=== PATIENT | female | born 1945 | race Caucasian/White ===

== ENCOUNTER 2017-04-04 15:01 | Inpatient (IN) | payer MEDICARE ==
[2017-04-04] MEDS ORDERED: Ipratropium 0.5MG/2.5ML NEB* 0.5 MG/2.5 ML NEB.SOLN INH ONE (15:32)
[2017-04-04] MEDS ORDERED: Levalbuterol 1.25MG/0.5ML NEB INH ONE ×2 (15:32→17:03)
[2017-04-04] MEDS ORDERED: NS 0.9% 1000 ML*IV.FLUID IV ONE (15:34)
[2017-04-04] MEDS ORDERED: Piperacillin/Tazobac ADVAN(*) 3.375 GM in NS 0.9% 100 ML* 100 ML IVPB ONE ×2 (15:40→15:52)
[2017-04-04] MEDS ORDERED: Vancomycin(*) 1,000 MG in NS 0.9% 250 ML* 250 ML IVPB ONE ×2 (15:40→19:30)
--- NOTE | 2017-04-04 15:46 | ED ---
Shortness of Breath - HPI Summary HPI Summary: Pt here w/ SOB and weakness. She developed URI sx Friday - rhinorrhea, cough, scratchy throat. [place] weak starting this day so reduced activity and hasn't been eating/drinking much. Denies fever, chills, N/V/D, ab pain, sores or dysuria. Reports she's hungry now. Has a lower central sternal CP she's had over the past 2 years - discussed w/ PCP who told her this is from COPD - this dx was made in the past 2 years only - h/o smoking but not recently. She takes fluticasone inhaled daily. Also has HTN for which she takes 2 meds. H/o breast CA - s/p mastectomy. No known h/o clotting, DVT. No h/o cardiac dz/arrhythmia - History of Current Complaint Chief Complaint: EDShortnessOfBreath Time Seen by Provider: 04/04/17 15:32 Hx Obtained From: Patient, Family/Yeast Culture Developer - Daughters - Allergy/Home Medications Allergies/Adverse Reactions: Allergies Allergy/AdvReac Type Severity Reaction Status Date / Time No Known Allergies Allergy Verified 04/04/17 15:11 Home Medications: Home Medications Fluticasone-Salmeterol 250-50* [Advair Diskus 250-50*] 1 puff INH BID PRN [History Confirmed 04/04/17] Meclizine TAB* [Antivert 12.5 TAB*] 25 mg PO DAILY 04/04/17 [History Confirmed 04/04/17] Spironolactone TAB* [Aldactone TAB*] 25 mg PO DAILY 04/04/17 [History Confirmed 04/04/17] PMH/Surg Hx/FS Hx/Imm Hx Previously Healthy: Yes Endocrine/Hematology History: Denies: Hx Anticoagulant Therapy, Hx Blood Disorders Cardiovascular History: Reports: Hx Hypertension - on meds Respiratory History: Reports: Hx Chronic Obstructive Pulmonary Disease (COPD) - fluticason inhaled daily Musculoskeletal History: Denies: Hx Osteoporosis Sensory History: Reports: Hx Contacts or Glasses Opthamlomology History: Reports: Hx Contacts or Glasses - Cancer History Hx Chemotherapy: Yes Hx Radiation Therapy: No - Surgical History Surgery Procedure, Year, and Place: left knee surgery, left ankle Infectious Disease History: No Infectious Disease History: Denies: Traveled Outside the [place] in Last 30 Days - Family History Known Family History: Positive: None - Social History Occupation: Retired Lives: Alone Alcohol Use: None Hx Substance Use: No Substance Use Type: Reports: None Hx Tobacco Use: Yes - not currently Smoking Status (MU): Former Smoker Review of Systems Positive: Fatigue. Negative: Fever, Chills Eyes: Negative Positive: Nasal Discharge. Negative: Epistaxis, Dental Pain, Sore Throat, Ear Ache Positive: Chest Pain - as in HPI Positive: Shortness Of Breath, Cough Gastrointestinal: Negative Positive: no symptoms reported Musculoskeletal: Negative Skin: Negative Neurological: Negative Psychological: Normal All Other Systems Reviewed And Are Negative: Yes Physical Exam Triage Information Reviewed: Yes Vital Signs On Initial Exam: Initial Vitals Temp Pulse Resp BP Pulse Ox 98 F 157 20 86/57 88 04/04/17 15:10 04/04/17 15:10 04/04/17 15:10 04/04/17 15:10 04/04/17 15:10 Vital Signs Reviewed: Yes Appearance: Positive: No Pain Distress, Well-Nourished, Ill-Appearing - pt is having increased respirations at rest, worse w/ exertion - she is able to speak and appears coherent; generalized weakness - needs assistance with standing from sitting and transfer to bed Skin: Positive: Warm, Dry - no rash, no lesions Head/Face: Positive: Normal Head/Face Inspection Eyes: Positive: Normal, EOMI, SERGEY, Conjunctiva Clear - wearing glasses ENT: Positive: Normal ENT inspection, Hearing grossly normal, Pharynx normal, TMs normal. Negative: Nasal congestion, Nasal drainage Dental: Positive: Other - edentulous Neck: Positive: Supple, Nontender Respiratory/Lung Sounds: Positive: Decreased Breath Sounds, Rales - Lt lower lobe. Negative: Stridor, Wheezes Cardiovascular: Positive: Pulses are Symmetrical in both Upper and Lower Extremities, Tachycardia, Leg Edema Left - +1 (-) Pablo's, Leg Edema Right - +1 (-) Pablo's, S1, S2. Negative: Murmur Abdomen Description: Positive: Nontender, Soft Bowel Sounds: Positive: Present Musculoskeletal: Positive: Normal, Strength/ROM Intact Neurological: Positive: Normal, Sensory/Motor Intact, Alert, Oriented to Person Place, Time, CN Intact II-III, Facial Symmetry, Speech Normal Psychiatric: Positive: Normal - calm, cooperative Diagnostics - Vital Signs Vital Signs Temp Pulse Resp BP Pulse Ox 04/04/17 15:10 98 F 157 20 86/57 88 - Laboratory Result Diagrams: 04/04/17 16:45 04/04/17 16:45 Diagnostic Studies Comment: CXR: pneumonia, COPD Lab Statement: Any lab studies that have been ordered have been reviewed, and results considered in the medical decision making process. Re-Evaluation - Re-Evaluation First Eval Change: Improved - breathing improved some s/p xoponex/ipratroprium bromide neb Course/Dx - Course Course Of Treatment: Pt presents to ED w/ SOB and generalized weakness. Reports this started earlier in the week with URI sx. She required assistance getting out of wheelchair and into bed - exacerbates SOB. She is able to speak but has tachypnea. Vital signs are suggestive of sepsis although she does not have a fever. She has h/o COPD for which she treats with fluticasone inhaled daily. She also has HTN and takes 2 meds for this as well - has been taking w/o difficulty. Her lungs sounds are distant but after duoneb, rales are auscultated over Lt middle/lower lobe. She reports some improvement of breathing after this - "it helped me move some phelgm". Her ECG reveals a. fib - pt and family deny a h/o a. fib or any heart issues. She had a w/u for chest pain 2 years ago which is how her PCP found and dx'd her COPD. This was normal then (including cardiac catheter). She was also placed on 2L O2 via NC upon entrance to room - some improvement (low 90's) - better w/ relaxation and deep breathes (mid 90's) - heart rate reduced to 110's w/ breathing and relaxation as well. Unfortunately, pulse ox dropped again while in room so NC O2 was increased to 4L. This improved her sat again. ABG returned with resp alkalosis. Other labs reveal WBC 14.7; HGB 10.2; HCT 32; MCV 79; MCH 25; RDW 18;PLATELET 488; MPV7; LYMPH %11.8; aBS NEUT 12.2; K+ 3.3; ANION GAP 12; BUN 39; GLUCOSE 123 ; LACTIC ACID 3.3; AST 9; CRP 299.98; OTHER LABS PENDING. Discussed w/ Dr. Gomez early in the case - initially source was unknown although pneumonia suspected - after neb tx, LLL reveals rales and so tx was aimed at CAP (no recent hospitalization). Discussed w/ Dr. Syed/Jacobo Valdez PRINT BUYER - will admit. Critical care time: 60 minutes - Diagnoses Provider Diagnoses: Sepsis due to pneumonia Discharge - Discharge Plan Condition: Guarded Disposition: ADMITTED TO [facility] Referrals: Jack Corrales MD [Primary Care Provider] -
[2017-04-04] MEDS ORDERED: Levofloxacin 750 MG IVPREMIX(* 750 MG/150 ML BAG IVPB ONE (15:52)
[2017-04-04 16:02] LABS: FIO2 2
[2017-04-04 16:09] LABS: PCO2 Arterial 26 mmHg (35-45)
--- NOTE | 2017-04-04 16:30 | RAD ---
INDICATION: Shortness of breath. COMPARISON: Comparison is made with a prior chest x-ray study from December 01, 2015. TECHNIQUE: Dual-energy PA and lateral views of the chest were obtained. FINDINGS: The heart is within normal limits in size. Mediastinal and hilar contours appear within normal limits. The lungs are hyperinflated. There is diffuse prominence of the interstitial markings with a more focal infiltrate present in the right mid and lower lung field. There is pleural thickening present laterally toward the right lung base versus a loculated pleural effusion. IMPRESSION: 1. FINDINGS MOST CONSISTENT WITH PNEUMONIA LESS LIKELY CONGESTIVE HEART FAILURE. 2. COPD.
[2017-04-04] MEDS ORDERED: methylPREDNISolone SOD 40 MG* 1 ML VIAL IV ONE (17:02)
[2017-04-04 17:03] LABS: Hematocrit 32 % (35-47); Hemoglobin 10.2 g/dl (12.0-16.0); Mean Corpuscular HGB Conc 32 g/dl (31-36); Mean Corpuscular Hemoglobin 25 pg (27-31); Mean Corpuscular Volume 79 fL (80-97); Mean Platelet Volume 7 um3 (7.4-10.4); Red Blood Count 4.04 10^6/ul (4.0-5.4); Red Cell Distribution Width 18 % (10.5-15); White Blood Count 14.7 10^3/ul (3.5-10.8)
[2017-04-04 17:16] LABS: BUN/Creatinine Ratio 39.8 (8-20); C Reactive Protein 299.98 mg/L (< 5.00); Calcium 9.3 mg/dL (8.6-10.3); EGFR African American 72.2 (>60); EGFR Non-African American 56.1 (>60); Potassium 3.3 mmol/L (3.5-5.0); Total Bilirubin 0.8 mg/dL (0.2-1.0); Total Protein 7.6 g/dL (6.4-8.9)
[2017-04-04 17:18] LABS: Troponin I 0.03 ng/mL (<0.04)
[2017-04-04] MEDS ORDERED: NS 0.9% 1000 ML* 2,000 ML IV ONE (17:50)
[2017-04-04] MEDS ORDERED: Albuterol 2.5 MG/3 ML NEB.SOL* (0.083%) INH PRN (17:50)
[2017-04-04] MEDS ORDERED: Vancomycin(*) 1,000 MG in NS 0.9% 250 ML* 250 ML IVPB SCH (17:51)
[2017-04-04] MEDS ORDERED: methylPREDNISolone SOD 40 MG* 1 ML VIAL ONE (18:10)
[2017-04-04 18:22] LABS: Albumin 3.4 g/dL (3.2-5.2); Globulin 4.2 g/dL (2-4)
[2017-04-04] MEDS ORDERED: Vancomycin per Pharmacy* NOTE FOLLOW UP PRN (18:29)
[2017-04-04 18:36] LABS: Magnesium 2.1 mg/dL (1.9-2.7)
[2017-04-04 18:43] LABS: TSH (Thyroid Stimulating Horm) 3.44 mcIU/mL (0.34-5.60)
[2017-04-04] MEDS: Albuterol/Ipratropium NEB.SOL* Albuterol 2.5 MG/Ipratropium 0.5 MG 3 ML INH SCH ×2 (18:47→23:10)
[2017-04-04] MEDS: NS 0.9% 1000 ML* 1,000 ML IV SCH (19:49)
[2017-04-04 21:22] LABS: EGFR African American 89.9 (>60); EGFR Non-African American 69.9 (>60)
[2017-04-04 21:39] LABS: Urine Bacteria 3+ (Absent); Urine Bilirubin Negative (Negative); Urine Glucose 1+(50 mg/dL) (Negative); Urine Nitrite Negative (Negative)
[2017-04-04] MEDS: KCL 20 MEQ/100 ML IVPREMIX* 20 MEQ/100 ML BAG IV SCH ×2 (21:46→23:55)
[2017-04-04] MEDS ORDERED: NS 0.9% 50 ML* 50 ML ONE (21:46)
[2017-04-04] MEDS: Azithromycin IV(*) 500 MG in NS 0.9% 250 ML* 250 ML IVPB SCH (21:52)
[2017-04-04] MEDS ORDERED: Ondansetron INJ* 2 MG/ML VIAL IV PRN (22:15)
[2017-04-04] MEDS: Budesonide NEB* 0.5 MG/2 ML NEB.SOLN INH SCH (23:10)
[2017-04-04] MEDS: cefTRIAXone VIAL(*) 1,000 MG in NS 0.9% 50 ML* 50 ML IVPB SCH (23:35)
[2017-04-04] MEDS: Heparin VIAL(*) 5000 UNITS/ML VIAL (FIVE THOUSAND) SUBCUT SCH (23:55)
--- NOTE | 2017-04-05 01:44 | HP ---
CC: Dr. Corrales; Dr. Borrero * HISTORY AND PHYSICAL: DATE OF ADMISSION: 04/04/17 PRIMARY CARE PROVIDER: Dr. Corrales. ATTENDING PHYSICIAN WHILE IN THE HOSPITAL: Matthieu Syed MD * (report dictated by Jacobo Valdez NP). CONSULTING SAMPLE SHOE INSPECTOR AND REWORKER: Dr. Borrero. CHIEF COMPLAINT: 1. Cough. 2. Shortness of breath. HISTORY OF PRESENT ILLNESS: Ms. Neil is a 71-year-old female patient, who carries a history of breast cancer; hypertension; TYRONE, noncompliant with CPAP; COPD; and history of osteoporosis. She comes in today stating that since Friday she has had progressive worsening shortness of breath, she has had cough. It has been nonproductive cough. She has not had any recent sick contacts. She says that this was not getting any better. She texted her daughter today and asked her for help. The daughter came to evaluate her and noted that she was obviously having a hard time breathing, very short of breath , taking rapid shallow breath and she brought her into the emergency room immediately. The patient says that she turned out she has not had any fevers. She denies having any chills. Denies having any abdominal pain. There has not been any nausea or vomiting. She does admit to having chest pain when she does take a deep breath. She came into the ED. It was noted that she appeared to be in new onset AFib. In addition to this, appeared to have a significant pneumonia, appeared to be septic and we were asked to evaluate for admission. PAST MEDICAL HISTORY: Significant for: 1. Breast cancer. 2. Hypertension. 3. COPD. 4. TYRONE. 5. Osteoporosis. PAST SURGICAL HISTORY: 1. The patient has had a mastectomy. 2. She has had a left upper extremity ORIF. 3. She has had a left lower extremity ORIF. 4. She has had a heart catheterization with no intervention. HOME MEDICATIONS: Include: 1. Advair 1 puff inhaled b.i.d. 2. Lisinopril 20 mg daily. 3. Meclizine 25 mg daily. 4. Spironolactone 25 mg daily. ALLERGIES TO MEDICATION: Include no known drug allergies. FAMILY HISTORY: Mother had a history of breast cancer. Father had a history of COPD. SOCIAL HISTORY: The patient is a former smoker. She does not smoke now. She quit 17 years ago. She does not drink alcohol. Surrogate decision maker is her daughter. REVIEW OF SYSTEMS: There is no documented fever. Denied having any significant weight change. There was no double vision. No ear discharge. There was no rhinorrhea, no sore throat, no thyroid enlargement. There was chest pain per my HPI. There is dyspnea on exertion. There is no orthopnea. No nocturnal dyspnea. There was no abdominal pain. There was no nausea, no vomiting, no dysuria. There was no frequency. There was no seizure, no loss of consciousness, no pruritus and no skin ulcerations. Review of 14 systems completed, all others negative. PHYSICAL EXAMINATION GENERAL: At this time, Ms. Neil is a 71-year-old female patient. She does appear to be in [id number] amount of respiratory distress. She appears to be well nourished, well developed. VITAL SIGNS: Initially blood pressure 86/57; last blood pressure was 103/70 with pulse initially was 157, it is now 120; respirations were noted to be 20, but when I encountered her, she is noted to be right on the 30s. Her O2 saturation is 97% and her temperature was 98. Her O2 sat was on 4 L. HEENT: Atraumatic, normocephalic. Eyes: EOMs are intact. Sclerae anicteric and not pale. Throat: Oral mucosa appears to be dry. No oropharyngeal erythema. NECK: Supple. LUNGS: She was noted to have rhonchi and crackles on the right lung with diaphragmatic expansion. The rhonchi and crackles are noted in the right middle and right lower lobe, equal diaphragmatic expansion. HEART: Sounds S1, S2. Irregularly irregular rate. No murmurs, rubs, or gallops. ABDOMEN: Soft, flat, nontender. Bowel sounds are present. EXTREMITIES: Pulses were 2+ throughout, moving all 4 extremities with 5/5 strength. NEUROLOGIC: The patient is awake. She is alert. She is oriented x3. Tongue midline. National Sales Associate were equal. She had no gross obvious focal deficits. SKIN: Grossly intact. DIAGNOSTIC STUDIES/LAB DATA: WBC of 14.7, RBC of 4.04, hemoglobin 10.2, hematocrit 32, platelet count of 488. The INR was 4.26, PTT at 25. Blood gas showed a pH of 7.51, pCO2 of 26, pO2 of 112. Sodium was 139, potassium was 3.4 , chloride was 104, BUN of 39, creatinine of 0.98, glucose of 123, lactic 3.3, calcium 9.3. Total bili 0.8, AST 9, ALT 7, alk phos 52. Troponin 0.03. CRP was 299. Total protein was 7.6. The patient did have a chest x-ray obtained today. On my review, she appeared to have significant right middle lobe pneumonia, right lower lobe. Radiology read it as findings most consistent with pneumonia, less likely congestive heart failure, COPD. EKG obtained today shows atrial fibrillation rate of 132. No ST elevation or T-wave inversions were noted. Reviewed with the previous EKG, the AFib is now new. Old medical records reviewed. ASSESSMENT AND PLAN: Ms. Neil is a 71-year-old female patient coming into the ER today with progressive worsening shortness of breath and found to have severe sepsis. She will be admitted under inpatient status for: 1. Severe sepsis secondary to pneumonia with hypoxic respiratory failure and acute renal failure. Plan at this point is to go ahead and give her 3 L of fluid IV wide open. Blood cultures were ordered in the ER and I have ordered them as well. They are to be collected. I did add on vancomycin, ceftriaxone, and azithromycin. In addition to this, I ordered steroids because I do think this is flaring her COPD as well and put her on neb standing. I am concerned though because of her work of breathing at 30 right now, I did ask for Vapotherm on the patient on max settings to see if we can get ahead of her with her work of breathing. If she is not improving in an hour or 2 hours on the Vapotherm, then I will have low threshold to proceed to intubation. I did discuss this with my attending doctor, Dr. Syed, and also discussed it with Dr. Borrero, the consulting substance abuse specialist and he was in agreement with this. We will again hydrate her. We will again hydrate her. We will ferro culture. We will check flu, legionella, strep pneumo antigen and again continue with aggressive pulmonary toileting. 2. Acute renal failure. It is probably related to dehydration and possibly acute tubular necrosis. We will get a FENa. We will hydrate her. We will repeat labs in the morning. 3. Lactic acidosis. Again, probably secondary to the sepsis. We will repeat this and follow serial lactate. 4. Breast cancer. Follow with primary. 5. Chronic obstructive pulmonary disease. She does appear to have an exacerbation at this point. We will go ahead and put her on steroids standing in addition to nebs along with inhaled Pulmicort. 6. Hypertension in the setting of acute illness. We are going to hold her antihypertensives. 7. Atrial fibrillation. It is probably being driven by the sepsis. At this point, I am going to go ahead and replace her potassium. I am going to add on a mag and a TSH, replace these if needed and treat the TSH if needed. The plan will be to get a potassium; therefore, I will hold off on anticoagulation as I think the AFib is obviously related to the sepsis, and hopefully by treating the sepsis, she will be rate controlled, and after the immediate illness, we could address anticoagulation and possible cardiology consult. I did order an echo as well for the AFib. 8. Osteoporosis. Follow up with primary. 9. DVT prophylaxis: We place her on heparin subcu. 10. Code status: Full code. 11. Fluid, electrolyte, nutrition: She is NPO for the time being. TIME SPENT: On the admission, which is critical care time, was 60 minutes, greater than half the time was spent [id number] with the patient obtaining my history and physical, other half the time was spent going over the plan of care with the patient, implementing the plan of care. I discussed the plan of care with my attending, Dr. Syed. JACOBO VALDEZ, DENISE [id number]/[facility] #: [id number] LATOSHA
[2017-04-05] MEDS: Albuterol/Ipratropium NEB.SOL* Albuterol 2.5 MG/Ipratropium 0.5 MG 3 ML INH SCH ×6 (04:28→23:54)
[2017-04-05] MEDS: NS 0.9% 1000 ML* 1,000 ML IV SCH ×2 (05:46→16:13)
[2017-04-05] MEDS: Heparin VIAL(*) 5000 UNITS/ML VIAL (FIVE THOUSAND) SUBCUT SCH ×3 (06:24→21:49)
[2017-04-05] MEDS ORDERED: Vancomycin(*) 750 MG in NS 0.9% 250 ML* 250 ML IVPB SCH (08:00)
[2017-04-05] MEDS: Budesonide NEB* 0.5 MG/2 ML NEB.SOLN INH SCH ×2 (08:11→19:32)
--- NOTE | 2017-04-05 10:57 | PN ---
Progress Note - Progress Note Date of Service: 04/05/17 Note: CRITICAL CARE MEDICINE Date: 04/05/17 Time: 950 SUBJECTIVE: Patient seen and examined. daughter at bedside. PHYSICAL EXAM: appears older then age, a little frail. hearing aids. Vital Signs: Reviewed. Neurologic: awake, communicating, holds capacity HEENT: pupils equal. Sclera anicteric. Trachea midline. Cardiovascular: S1 S2 reg Respiratory: diffuse Right sided rales and mild wheeze. left course otherwise clear Abdomen: Soft, obese, nt. no masses Extremities: Warm. Left knee scar. Access: piv LABS: Reviewed. IMAGING: Reviewed. MEDICATIONS: Reviewed. ASSESSMENT: 71 F Acute hypoxic resp failure CAP - likely strept pna Severe sepsis sec to above ?parapneumonic effusion COPD exac Andra, secondary to above- improved Lactic acidosis - resolved PAF sec to sepsis - resolved PLAN: Neurologic: stable. Cardiovascular: Perfusing. vol status ok but can still tolerate gentle hydration today. Respiratory: Tolerating on HFO2 and avoided MV. Still tachypnea and vol loss on Right which may remain dense. Bedside US with nonfree flowing but not large volume pleural fluid. Still question parapneumoninic effusion perhaps. We discussed at her bedside with her and daughter. Can consider thora, but only for diagnostics at this time and then may need to upgrade to surgical potential. However, would prefer to stabilize further and if she can tolerate, obtain CT chest to better define and then go from there. If unable to have CT, sec to HFO2 needs, may still need to attempt thora today. she expressed understanding. Gastrointestinal: clears. Renal/Metabolic: improved. ivf today Infectious Disease: recieving ceftriaxone and azithro for cap, and can narrow further to strept post sens. can dc vanco Hematology: stable. Endocrine: steroids for copd exac component Musculoskeletal: oob as able. Psych/Social: pt and daughter expressed understanding Supportive and preventative care as ordered. Vaccine: up to date SUP: po VTE prophylaxis: heparin Troy catheter given critical illness, monitoring needs for accurate assessment of ANDRA and KDIGO criteria for critically ill patients and to avoid potential harms of urinary retention, skin breakdown/ulcers. Disposition: ICU Code Status: Full Critical Care Time: 45min Richard Borrero DO
[2017-04-05 11:17] LABS: Add Diff/Slide Review? Slide Review Added; Comments Flag Yes; Hematocrit 24 % (35-47); Hemoglobin 7.6 g/dl (12.0-16.0); Mean Corpuscular HGB Conc 32 g/dl (31-36); Mean Corpuscular Hemoglobin 25 pg (27-31); Mean Corpuscular Volume 78 fL (80-97); Mean Platelet Volume 7 um3 (7.4-10.4); Red Blood Count 3.04 10^6/ul (4.0-5.4); Red Cell Distribution Width 18 % (10.5-15); White Blood Count 11.1 10^3/ul (3.5-10.8)
[2017-04-05 11:19] LABS: BUN/Creatinine Ratio 69.5 (8-20); Calcium 8.1 mg/dL (8.6-10.3); EGFR African American 129.6 (>60); EGFR Non-African American 100.8 (>60); Potassium 4.1 mmol/L (3.5-5.0)
[2017-04-05] MEDS: Azithromycin IV(*) 500 MG in NS 0.9% 250 ML* 250 ML IVPB SCH (17:47)
[2017-04-05] MEDS: cefTRIAXone VIAL(*) 1,000 MG in NS 0.9% 50 ML* 50 ML IVPB SCH (19:49)
[2017-04-06] MEDS ORDERED: Acetaminophen TAB* 325 MG PO PRN (03:24)
[2017-04-06 04:34] LABS: Hematocrit 31 % (35-47); Hemoglobin 9.9 g/dl (12.0-16.0); Mean Corpuscular HGB Conc 32 g/dl (31-36); Mean Corpuscular Hemoglobin 25 pg (27-31); Mean Corpuscular Volume 79 fL (80-97); Mean Platelet Volume 7 um3 (7.4-10.4); Red Blood Count 3.95 10^6/ul (4.0-5.4); Red Cell Distribution Width 18 % (10.5-15); White Blood Count 11.6 10^3/ul (3.5-10.8)
[2017-04-06 04:38] LABS: Add Diff/Slide Review? Slide Review Added; Comments Flag Yes
[2017-04-06] MEDS: Albuterol/Ipratropium NEB.SOL* Albuterol 2.5 MG/Ipratropium 0.5 MG 3 ML INH SCH ×6 (04:38→22:45)
[2017-04-06 04:49] LABS: BUN/Creatinine Ratio 57.4 (8-20); Calcium 7.9 mg/dL (8.6-10.3); EGFR African American 124.7 (>60); Magnesium 2.3 mg/dL (1.9-2.7); Phosphorus 2.2 mg/dL (2.5-5.0); Potassium 3.5 mmol/L (3.5-5.0)
[2017-04-06] MEDS: Heparin VIAL(*) 5000 UNITS/ML VIAL (FIVE THOUSAND) SUBCUT SCH ×3 (06:37→21:03)
[2017-04-06] MEDS ORDERED: Vancomycin Trough Check NOTE FOLLOW UP ONE (08:00)
[2017-04-06] MEDS: Budesonide NEB* 0.5 MG/2 ML NEB.SOLN INH SCH ×2 (08:31→19:21)
--- NOTE | 2017-04-06 10:24 | PN ---
Progress Note - Progress Note Date of Service: 04/06/17 Note: CRITICAL CARE MEDICINE Date: 04/06/17 Time: 930 SUBJECTIVE: Patient seen and examined. PHYSICAL EXAM: less distressed again Vital Signs: Reviewed. Neurologic: awake, communicating, holds capacity HEENT: pupils equal. Sclera anicteric. Trachea midline. Cardiovascular: S1 S2 reg Respiratory: few rales on R but less. Abdomen: Soft, obese, nt. no masses Extremities: Warm. Access: piv LABS: Reviewed. IMAGING: Reviewed. MEDICATIONS: Reviewed. ASSESSMENT: 71 F Acute hypoxic resp failure CAP - strept pna Severe sepsis sec to above ?parapneumonic effusion COPD exac Andra, secondary to above- improved Lactic acidosis - resolved PAF sec to sepsis - resolved PLAN: Neurologic: stable. Cardiovascular: Perfusing. vol status ok and not trying to over water but can tolerate po water. echo pending Respiratory: off HFO2 and continued to wean. Still with dec chest excursion and vol loss on Right. Eval with CT today to enusre no large effusion to target foir benefit. Pt afeb and clincally improving so no large need to drain yet but may cause a lingering course. nebs. adjunctives. not on systemic steroids but if wheeze reverts would consider course with her cap. Gastrointestinal: advanced. Renal/Metabolic: improved. [place] Infectious Disease: on ceftriaxone and azithro for strept awaiting sens and then can de-escalate. Hematology: stable. Endocrine: f/u needs Musculoskeletal: oob as able. ambulate. Psych/Social: pt expressed understanding Supportive and preventative care as ordered. Vaccine: up to date SUP: po VTE prophylaxis: heparin Disposition: ICU today likely, and oou later today or tomorrow. Code Status: Full Critical Care Time: 25min Richard Borrero DO
[2017-04-06] MEDS ORDERED: Iohexol 300* (CONTRAST) 10 ML SDV IV ONE (11:18)
--- NOTE | 2017-04-06 12:22 | RAD ---
INDICATION: Sepsis and atrial fibrillation. Concern for parapneumonic effusion. COMPARISON: CTA of the chest dated August 24, 2009. More recent imaging includes chest x-ray dated April 04, 2017 TECHNIQUE: Axial source images of the chest were acquired after the injection of 80 mL Omnipaque 300 intravenous contrast from just above the lung apices to the base of the diaphragm. Coronal and sagittal reconstructed images were acquired. FINDINGS: The heart is normal in size. There is no evidence of pericardial effusion. There is no evidence of aortic aneurysm or dissection. There is coarse calcification at the coronary arteries and arch of the aorta. There is no mediastinal, hilar, or axillary lymphadenopathy. There is consolidation with air bronchograms involving the dependent portion and lower portion of the right lower lobe. There appears to be involvement of the dependent portions of the right middle and upper lobes as well to a lesser extent. There is a small amount of compressive consolidation involving the dependent portion of the left lower lobe. There are small bibasilar pleural effusions. The pleural effusion on the right is slightly smaller than the effusion seen on the [address], but the degree of parenchymal consolidation involving the right lung is greater. Overall there is centrilobular emphysematous changes as well. The osseous structures appear normal. Multilevel degenerative changes of the thoracic spine includes loss of intervertebral disc height. There are no sinister appearing bone lesions. IMPRESSION: 1. There is consolidation with air bronchograms involving a majority of the right lower lobe and the dependent portions of the right middle and right upper lobes. There is a small amount of compressive consolidation involving the dependent-most portion of the left lower lobe. This is in the presence of bilateral pleural effusions, slightly larger on the right than the left. When compared to the CT of the chest dated August 24, 2009 the right sided pleural effusion is slightly smaller but the degree of consolidation is greater. 2. There is coarse atherosclerotic calcification at the origin of the left subclavian artery. Please correlate to left upper extremity arterial insufficiency including relatively decreased blood pressures and signs or symptoms of subclavian steal phenomenon.
[2017-04-06] MEDS ORDERED: Morphine INJ* 2 MG/ML 1 ML SYRINGE (TWO MG - NEW SYRINGE VERSION) ONE (12:24)
[2017-04-06] MEDS: Potassium & Sodium Phos 250MG* = 1 PACKET PO SCH ×2 (12:56→21:03)
[2017-04-06] MEDS ORDERED: Morphine INJ* 2 MG/ML 1 ML SYRINGE (TWO MG - NEW SYRINGE VERSION) IV ONE (13:00)
--- NOTE | 2017-04-06 13:16 | PN ---
Progress Note - Progress Note Date of Service: 04/06/17 Note: CRITICAL CARE MEDICINE PROCEDURE NOTE DATE OF PROCEDURE: SERVICE: Critical Care Medicine LOCATION OF PROCEDURE: ICU PROCEDURE: Thoracentesis PROCEDURALIST: Dr. Borrero Consent obtain: Yes from pt Time out held: Yes INDICATION: Pleural effusion, PROCEDURE: Oxygenation maintained and vitals monitored. Patient in upright seated position Right side and site , posterior, above 8th rib, marked with initials and date. Chlorhexidine prep x 2 at site and full sterile drape, gown, and gloves utilized. Total 5ml 1% lidocaine utilized locally. Small incision via scalpel at skin. Standard sterile technique utilized via ultrasound guidance. Fluid appeared murky on US and not overtly free flowing anywhere. Needle advanced to total 5cm from skin and retraction of venous blood. At first, thought may have hemothorax , but pt denies falling. after about 5mls retracted, fluid consistency did not change. Never withdrew air, but pt then with episode of coughing and then hemoptysis. [place] short of breath with this and coughed up further. Procedure abandoned, as assumption of iatrogenic ptx now. Pt O2 increased for comfort. Placed back in supine at 30 degrees. Explained the dynamics to pt and 2 daughters at bedside. Pt not desaturating but placed on HFO2 to ease. Bedside US still revealing sliding and effusion. Stat cxr without ptx. Pt feeling more comfortable now. Again discussed the complication with pt and her daughters. They are appreciative. Plan to observe and repeat CXR in 1 hour to ensure no further complications. Chest tube at bedside ready for now. Richard Borrero, DO
--- NOTE | 2017-04-06 13:19 | ECHO ---
Patient: ANDREY GO [facility] Rec#: [id number] : 1945 Date: 04/06/2017 Age: 71y Height: 160 cm / 63.0 in Weight: 70.3 kg / 154.9 lbs Sex: F BSA: 1.7 Room#: ICU 7 Admit Date#: 04/04/2017 Type: Inpatient Referring: Jacobo Valdez NP Reading: Dayana Jean-Baptiste MD Consultant Internship: Maria Luz Molina RN RDCS CC: Jack Corrales MD Transthoracic Echocardiogram Indication: New onset A. fib BP: 134/66 HR: 78 Rhythm: NSR Findings History: HTN, COPD, former smoker, TYRONE, breast cancer Technical Comments: The study quality is fair. The study is technically limited due to the patient's history of COPD. The study is technically limited due to the patient's smoking history. The study was technically limited due to the patient's inability to lay in the left lateral decubitus position. Completed at 1030. Left Ventricle: The left ventricular chamber size is normal. Global left ventricular wall motion and contractility are within normal limits. There is normal left ventricular systolic function. The estimated ejection fraction is 60-65%. There is no consistent Doppler evidence of clinically significant diastolic dysfunction. Left Atrium: The left atrium is moderately dilated. Right Ventricle: The right ventricle wall thickness is mildly increased. The right ventricular cavity size is normal. The right ventricular global systolic function is normal. Right Atrium: The right atrium is mildly dilated. The interatrial septum appears lipomatous. Aortic Valve: The aortic valve is trileaflet. The aortic valve leaflets are mildly thickened. There is aortic annular calcification. There is no evidence of aortic regurgitation. There is borderline aortic stenosis present. Mitral Valve: Moderate mitral annular calcification present. The mitral valve leaflets are mildly thickened. Moderate subvalvular thickening of the mitral valve is visualized. There is mild mitral regurgitation. There is borderline mitral stenosis. The mean gradient across the mitral valve is 4.5 mmHg. Tricuspid Valve: The tricuspid valve leaflets are normal. There is mild to moderate tricuspid regurgitation. There is evidence of moderate pulmonary hypertension. There is no tricuspid stenosis. Pulmonic Valve: The pulmonic valve structure is not well visualized. There is a trace pulmonic regurgitation. There is no pulmonic stenosis. Pericardium: There is no significant pericardial effusion. A pericardial fat pad is visualized. Aorta: There is no dilatation of the ascending aorta. The aortic arch is not well visualized. There is no dilation of the aortic root. Pulmonary Artery: The main pulmonary artery is not well visualized. Venous: The inferior vena cava is dilated. There is an approximate 50% respiratory change in the inferior vena cava dimension. Conclusions Global left ventricular wall motion and contractility are within normal limits. The estimated ejection fraction is 60-65%. The right ventricular global systolic function is normal. The left atrium is moderately dilated. The aortic valve leaflets are mildly thickened. There is borderline aortic stenosis present. Moderate mitral annular calcification present and the mitral valve leaflets are mildly thickened. There is mild mitral regurgitation. There is borderline mitral stenosis. There is mild to moderate tricuspid regurgitation. There is evidence of moderate pulmonary hypertension 49 mmHg. Compared with prior study of 01/09/09, ventricular function is stable, AV sclerosis and stenosis are new, MR is stable, MS new, TR has increased from trace and pulmonary hypertension is new. Measurements Name Value Normal Range RVDdMajor (2D) 3.2 cm (2.2 - 4.4) RVAW (2D) 0.9 cm (0.2 - 0.5) RAd ISD 4CH 5.1 cm (3.4 - 4.9) RA (A4C)W 3.7 cm (2.9 - 4.6) IVSd (2D) 1 cm (0.6 - 1) LVPWd (2D) 1 cm (0.6 - 1) LVIDd (2D) 4.2 cm (3.6 - 5.4) Aortic Annulus 1.6 cm (1.4 - 2.6) Ao root diameter (2D) 2.6 cm (2.1 - 3.5) Ascending Ao 2.6 cm (2.1 - 3.4) LA dimension (AP) 2D 3.5 cm (2.3 - 3.8) LAd ISD 4CH 5.5 cm (2.9 - 5.3) LA ISD 4CH W 4.4 cm (2.5 - 4.5) Name Value Normal Range LA ESV SP 4CH (A/L) 63 ml - LA ESV SP 2CH (A/L) 72 ml - LA ESV BP (A/L) 73 ml - LA ESV BP (A/L) index 42.2 ml/m2 - LA ESV SP 4CH (MOD) 60 ml - LA ESV SP 2CH (MOD) 71 ml - Name Value Normal Range MV E-wave Vmax 1.3 m/sec - MV deceleration time 240 msec - MV A-wave Vmax 1 m/sec - MV E:A ratio 1.3 ratio - LV septal e' Vmax 0.07 m/sec - LV lateral e' Vmax 0.1 m/sec - LV E:e' septal ratio 18.6 ratio - LV E:e' lateral ratio 13 ratio - Name Value Normal Range AV Vmax 2.4 m/sec - AV VTI 46.5 cm - AV peak gradient 22.6 mmHg - AV mean gradient 9.7 mmHg - LVOT diameter 2 cm - LVOT Vmax 1.6 m/sec - LVOT VTI 31.1 cm - LVOT peak gradient 9.6 mmHg - LVOT mean gradient 4.5 mmHg - DOI (VTI) 0.67 ratio - DOI (Vmax) 0.67 ratio - ZULEIKA (continuity Vmax) 2.1 cm2 - UZLEIKA (continuity VTI) 2.1 cm2 - Name Value Normal Range MV Vmax 1.7 m/sec - MV VTI 41.3 cm - MV peak gradient 11.2 mmHg - MV mean gradient 4.5 mmHg - MV PHT 77.8 msec - MVA (PHT) 2.8 cm2 - Name Value Normal Range TR Vmax 2.9 m/sec - TR peak gradient 34 mmHg - RAP 15 mmHg - RVSP 49 mmHg - IVC diameter 2.2 cm - Name Value Normal Range PV Vmax 1.1 m/sec -
--- NOTE | 2017-04-06 13:21 | RAD ---
INDICATION: Status post thoracentesis. COMPARISON: Same day CT of the chest TECHNIQUE: Single AP portable view of the chest was obtained at 1231 hours. FINDINGS: Image quality is compromised due to the relative inferiority of a portable chest x-ray. There is no pneumothorax. Density obscuring the right middle and lower lung as well as the right hemidiaphragm and costophrenic angle is similar in appearance to the CT imaging that depicted pneumonia at this same area. IMPRESSION: 1. No pneumothorax status post thoracentesis. 2. Density obscuring the right middle and lower lung corresponds to consolidation seen on the same day CT of the chest.
--- NOTE | 2017-04-06 14:00 | RAD ---
INDICATION: Status post thoracentesis COMPARISON: Same day chest x-ray acquired at 1231 hours TECHNIQUE: Single AP portable view of the chest was obtained at 1331 hours. FINDINGS: Image quality is compromised due to the relative inferiority of a portable chest x-ray. There is no radiographically apparent pneumothorax. Chest x-ray findings are unchanged since the chest x-ray 1 hour earlier. IMPRESSION: No pneumothorax or significant change in chest x-ray since the chest x-ray acquired one hour earlier.
[2017-04-06] MEDS: cefTRIAXone VIAL(*) 1,000 MG in NS 0.9% 50 ML* 50 ML IVPB SCH (19:36)
[2017-04-07] MEDS: Albuterol/Ipratropium NEB.SOL* Albuterol 2.5 MG/Ipratropium 0.5 MG 3 ML INH SCH ×2 (04:26→09:48)
[2017-04-07] MEDS: Heparin VIAL(*) 5000 UNITS/ML VIAL (FIVE THOUSAND) SUBCUT SCH ×3 (05:20→21:03)
[2017-04-07 06:15] LABS: Hematocrit 27 % (35-47); Hemoglobin 8.6 g/dl (12.0-16.0); Mean Corpuscular HGB Conc 32 g/dl (31-36); Mean Corpuscular Hemoglobin 25 pg (27-31); Mean Corpuscular Volume 79 fL (80-97); Mean Platelet Volume 7 um3 (7.4-10.4); Red Blood Count 3.44 10^6/ul (4.0-5.4); Red Cell Distribution Width 18 % (10.5-15); White Blood Count 14.1 10^3/ul (3.5-10.8)
[2017-04-07 06:16] LABS: Add Diff/Slide Review? Slide Review Added; Comments Flag Yes
[2017-04-07 06:25] LABS: BUN/Creatinine Ratio 45.8 (8-20); Calcium 8.3 mg/dL (8.6-10.3); EGFR African American 129.6 (>60); EGFR Non-African American 100.8 (>60); Potassium 3.8 mmol/L (3.5-5.0)
--- NOTE | 2017-04-07 07:47 | RAD ---
HISTORY: Follow-up pneumonia COMPARISONS: April 06, 2017 VIEWS: 1: frontal portable view of the chest at 5:40 AM FINDINGS: LINES AND TUBES: None. CARDIOMEDIASTINAL SILHOUETTE: The cardiomediastinal silhouette is stable. PLEURA: There is blunting of the right costophrenic angle, with small right pleural effusion. LUNG PARENCHYMA: There is a diffuse pattern of reticular opacification with indistinct pulmonary vessels. There is patchy alveolar opacification of the right lower lung field, somewhat improved from the previous examination. ABDOMEN: The upper abdomen is clear. There is no subphrenic gas. BONES AND SOFT TISSUES: No bone or soft tissue abnormalities are noted. IMPRESSION: 1. RIGHT PLEURAL EFFUSION. 2. PULMONARY INTERSTITIAL EDEMA. 3. RIGHT BASILAR ATELECTASIS VERSUS CONSOLIDATION, SOMEWHAT IMPROVED FROM THE PREVIOUS EXAMINATION.
[2017-04-07] MEDS: Potassium & Sodium Phos 250MG* = 1 PACKET PO SCH ×2 (08:14→21:03)
[2017-04-07] MEDS: Budesonide NEB* 0.5 MG/2 ML NEB.SOLN INH SCH (09:42)
--- NOTE | 2017-04-07 11:09 | PN ---
Critical Care Services: Patient states increasing SOB this AM, but is breathing comfortably, and SpO2 is > 90% on nasal O2 at 2 L/min.n CXR this AM shows no change from yesterday ( i.e., no pneumothorax). Vital Signs: Temp Pulse Resp BP SpO2 FiO2 99.5 F 74 21 129/73 94 24 Physical Exam: Gen:Up in a chair. No apparent distress Lungs: Occasional crackles at right base posteriorly. Otherwise, no adventitious sounds. Extremities: No cyanosis or edema. Fluid Balance (Past 24 Hours): 04/07/17 06:59 Intake Total 2130 Output Total 2500 Balance -370 Weight 172 lb Intake: IV Fluids 300 ABX 50 NS (0.9%) 85 NS to Maintain IV Patency 165 IVPB NS (0.9%) NS to Maintain IV Patency Oral 1830 Output: Urine 600 Troy 1900 Residual Troy 16 Fr Temperature Probe Other: Date of Last Bowel 04/06/17 Movement Labs: 04/07/17 04/07/17 05:45 05:45 WBC 14.1 Hgb 8.6 Hct 27 MCV 79 MCH 25 L Plt Count 505 Sodium 141 Potassium 3.8 Chloride 114 Carbon Dioxide 21 BUN 27 Creatinine 0.59 Glucose 99 Studies: CXR: As mentioned Nutrition: Oral diet Impression: Bacteremic pneumococcal pneumonia with parapneumonic effusion. Patient is clinically improving on IV ceftriaxone, and O2 requirement is minimal at rest. Plan: 1. The increase in WBCs today is not accompanied by other clinical signs of deterioration, so will just follow for now. 2. No need to tap the effusion if patient continues to improve clinically (50% of pneumococcal pneumonias have a parapneumonic effusion, but empyema is uncommon) 3. Will transfer out of ICU today. 4. Continue the IV antibiotic for now (because of the associated bacteremia). Critical Care Time: 40 minutes (including review of prior care, and conversations with the patient).
[2017-04-07] MEDS: Mometasone/Formoter 200/5 MDI INH SCH (19:51)
[2017-04-07] MEDS: cefTRIAXone VIAL(*) 1,000 MG in NS 0.9% 50 ML* 50 ML IVPB SCH (20:14)
[2017-04-08] MEDS ORDERED: Acetaminophen TAB* 325 MG PO PRN (00:38)
[2017-04-08] MEDS: Heparin VIAL(*) 5000 UNITS/ML VIAL (FIVE THOUSAND) SUBCUT SCH ×2 (05:49→14:47)
[2017-04-08 05:50] LABS: Hematocrit 25 % (35-47); Hemoglobin 8.1 g/dl (12.0-16.0); Mean Corpuscular HGB Conc 33 g/dl (31-36); Mean Corpuscular Hemoglobin 25 pg (27-31); Mean Corpuscular Volume 77 fL (80-97); Mean Platelet Volume 6 um3 (7.4-10.4); Red Blood Count 3.22 10^6/ul (4.0-5.4); Red Cell Distribution Width 18 % (10.5-15); White Blood Count 10.7 10^3/ul (3.5-10.8)
[2017-04-08] MEDS: Mometasone/Formoter 200/5 MDI INH SCH (08:39)
[2017-04-08 11:45] VITALS: BP 105/72
--- NOTE | 2017-04-09 09:33 | DS ---
CC: Jack Corrales MD * DISCHARGE SUMMARY: DATE OF ADMISSION: 04/04/2017 DATE OF DISCHARGE: 04/08/2017 ADMISSION DIAGNOSES: Sepsis, acute renal failure, lactic acidosis, breast cancer, COPD, hypertension, atrial fibrillation, osteoporosis. DISCHARGE DIAGNOSES: Sepsis, acute renal failure, lactic acidosis, breast cancer, COPD, hypertension, atrial fibrillation, osteoporosis. HOSPITAL COURSE: The patient is a 71-year-old woman who presented to [facility] with chief complaint of cough and shortness of breath. Patient was in new onset AFib. She also apparently had pneumonia. The patient was placed on vanco, Rocephin, and azithromycin initially. Patient was also hypokalemic and septic which was the likely close of her atrial fibrillation. Because the patient was in acute hypoxic respiratory failure, she was admitted to the ICU. The patient ended up having a thoracentesis done in the ICU. The thoracentesis had to be discontinued because there was concern about a hemothorax; however, the patient did well postprocedure. The patient ended up having the effusion tapped because it was thought to be a parapneumonic effusion secondary to pneumococcal pneumonia that would improve on its own. Patient was transferred to general medical floor. But the day the patient was in general medical floor the patient was feeling considerably improved and quite anxious to go home. She did require supplemental oxygen at the time and she will be sent home with 3 L of oxygen. She will also be sent home with antibiotic therapy in the form of Vantin 200 twice daily. Patient's atrial fibrillation was thought to be secondary to sepsis and resolved and so she did not require any anticoagulation. PHYSICAL EXAMINATION: On the date of discharge, elderly woman sitting up in bed , in no acute distress. Vital Signs: Temperature 98.6 degrees, heart rate 92 beats per minute, respiratory rate 19 breaths per minute, pulse ox 95% on 3 L, blood pressure 105/72. HEENT: Normocephalic, atraumatic. Pupils equal, round and reactive to light. Moist mucus membranes. Neck supple. No JVD, bruits, palpable thyroid, or lymphadenopathy. Chest is clear to auscultation and percussion bilaterally. Cardiovascular: S1 and S2 appreciated. Abdominal Exam : Positive bowel sounds in all 4 quadrants. Soft, nontender, nondistended. Hepatosplenomegaly. Extremities: No cyanosis, clubbing or edema. +2 peripheral pulses bilaterally. Neuro: Alert and oriented x3, moves all extremities. Skin: No rashes or abnormalities. STUDIES DONE WHILE IN THE HOSPITAL: Chest x-ray, 04/04/17. Impression: Findings most consistent with pneumonia, less likely congestive heart failure, COPD. Transthoracic echocardiogram, 04/04/17. Impression: Global left ventricular wall motion and contractility within normal limits. Estimated EF is 60% to 65%. Right ventricular global systolic function is normal. Left atrium mildly dilated. Aortic valve leaflets are mildly thickened. Borderline aortic stenosis present. Moderate mitral annular calcification present and the mitral valve leaflets are mildly thickened. Mild mitral regurgitation. Borderline mitral stenosis. Mild-to- moderate tricuspid regurgitation. Evidence of moderate pulmonary hypertension. Compared with prior study of 01/09/09, ventricular function stable. AV sclerosis/stenosis are new. Mitral regurgitation stable. Mitral stenosis is new. Tricuspid regurgitation increased in phase. Pulmonary hypertension is new. Chest x-ray, 04/07/17. Impression: Right pleural effusion, pulmonary interstitial edema. Right basilar atelectasis versus consolidation, somewhat improved from previous examination. CAT scan of chest, it was done on 04/06/17. Impression: Consolidation with air bronchograms over a majority of the right lower lobe and dependent portions of the right middle and right upper lobes. This is just a small amount of compressive consolidation involving the dependent most portion of the left lower lobe. There is the presence of bilateral pleural effusions, slightly larger on the right than left. When comparing the CT of the chest dated the right side pleural effusion is slightly smaller but the degree of consolidation is greater. There is coarse atherosclerotic calcification on evaluation of the left subclavian artery. Please correlate left upper extremity arterial insufficiency including relative decrease in blood pressure and signs and symptoms of subclavian steal phenomenon. DISCHARGE MEDICATIONS: 1. Vantin 200 mg twice daily. 2. Spironolactone 25 mg daily. 3. Meclizine 25 mg daily. 4. Lisinopril 20 mg daily. 5. Advair 1 puff inhaled twice daily as needed. DISCHARGE PLAN: The patient will be discharged home. She will follow up with her PCP within a week. The patient will return to the ED if symptoms recur. The patient should have a follow up chest x-ray within 6 weeks. TIME SPENT: Over 45 minutes were spent on this discharge and more than 25 minutes was spent in direct [id number] contact with the patient physical exam and evaluation. [id number]/[facility] #: [id number] LATOSHA
== END 2017-04-08 17:10 | disposition home or self-care (01) | DRG 871 ==
LOC: ED 15:01 → ICU 17:41 → MED 04-07 16:42
PROVIDERS: ADMIT Hospitalist; ATTEND Internal Medicine
PROC: 0W993ZZ Drainage of Right Pleural Cavity, Percutaneous Approach (ICD-10-PCS; principal; 2017-04-06)
DX: A41.9 Sepsis, unspecified organism (principal); J13 Pneumonia due to Streptococcus pneumoniae; J96.01 Acute respiratory failure with hypoxia; N17.9 Acute kidney failure, unspecified; J90 Pleural effusion, not elsewhere classified; E87.2 Acidosis; I27.20 Pulmonary hypertension, unspecified; I48.0 Paroxysmal atrial fibrillation; J44.0 Chronic obstructive pulmonary disease with (acute) lower respiratory infection; J44.1 Chronic obstructive pulmonary disease with (acute) exacerbation; I08.3 Combined rheumatic disorders of mitral, aortic and tricuspid valves; G47.33 Obstructive sleep apnea (adult) (pediatric); I10 Essential (primary) hypertension; Z85.3 Personal history of malignant neoplasm of breast; Z91.19 Patient's noncompliance with other medical treatment and regimen; M81.0 Age-related osteoporosis without current pathological fracture; Z90.10 Acquired absence of unspecified breast and nipple; Z80.3 Family history of malignant neoplasm of breast; Z82.5 Family history of asthma and other chronic lower respiratory diseases; Z87.891 Personal history of nicotine dependence; R65.20 Severe sepsis without septic shock; E87.6 Hypokalemia; Z99.81 Dependence on supplemental oxygen; I70.202 Unspecified atherosclerosis of native arteries of extremities, left leg
CPT/HCPCS: 36415; 36600; 71010; 71020; 71260; 80048; 80053; 81003; 81015; 82565; 82803; 83605; 83735; 83880; 84100; 84443; 84484; 84520; 85025; 85027; 85610; 85730; 86140; 87040; 87077; 87086; 87150; 87184; 87186; 87205; 87502; 87641; 87899; 93005; 93306; 94640; 94760; A9270-GY; J0456; J0696; J1644; J2270; J2543; J2920; J3370; J3480; J7644; Q9967

== ENCOUNTER 2018-12-24 13:12 | Observation (INO) | payer MEDICARE ==
[~2018-12-24 13:12] MED LIST: Buffered Lidocaine 1% SYRIN* 1 ML/SYRINGE INTRADERM ONE; Dexamethasone IV* 4 MG/ML 1 ML (4 MG) IV SLOW PU ONE; Famotidine TAB* 20 MG PO ONE; Lactated Ringers 1000 ML Bag* 1,000 ML IV SCH
[2018-12-24] MEDS ORDERED: Famotidine TAB* 20 MG ONE (14:12)
[2018-12-24] MEDS ORDERED: Buffered Lidocaine 1% SYRIN* 1 ML/SYRINGE INTRADERM ONE (14:12)
[2018-12-24] MEDS ORDERED: Dexamethasone IV* 4 MG/ML 1 ML (4 MG) ONE ×2 (14:12→14:40)
[2018-12-24] MEDS ORDERED: ceFAZolin 2 GM in NS PREMIX(*) 2 GM/100 ML BAG IVPB ONE (14:12)
[2018-12-24] MEDS ORDERED: Lidocaine 2% PF * 5 ML VIAL ONE (14:45)
[2018-12-24] MEDS ORDERED: Propofol* 10 MG/ML 20 ML BTL ONE (14:45)
[2018-12-24] MEDS ORDERED: fentaNYL* 50 MCG/ML 2 ML VIAL (100 MCG VIAL) ONE ×4 (14:45→21:27)
[2018-12-24] MEDS ORDERED: Midazolam* 1 MG/ML 2 ML VIAL (2 MG) ONE (14:45)
[2018-12-24] MEDS ORDERED: Bupivacaine 0.25% SDV PF* 10 ML VIAL INJ ONE (17:33)
[2018-12-24] MEDS ORDERED: oxyCODONE/Acetamin 5/325 MG* TAB PO PRN (18:32)
[2018-12-24] MEDS ORDERED: DiMENhydriNATE IV* 50 MG/ML VIAL IV PUSH PRN (18:32)
[2018-12-24] MEDS ORDERED: Acetaminophen TAB* 325 MG PO PRN ×2 (18:32→20:39)
[2018-12-24] MEDS ORDERED: Naloxone* 0.4 MG/ML 1 ML VIAL IV PRN (18:32)
[2018-12-24] MEDS ORDERED: Ondansetron INJ* 2 MG/ML VIAL ONE ×2 (19:39→21:27)
--- NOTE | 2018-12-24 20:20 | OP ---
Operative Report - Blank - Operative Report Date of Operation: 12/24/18 Note: Brief Operative Note Preop Dx: left breast cancer Postop Dx: left breast cancer Procedure: left mastectomy Anesthesia: general LMA Surgeon: Miah Back Facer: RENITA Varela; JULIETA Brown Fluids: 1200 cc LR EBL: 50 cc Specimen: left breast Drains: 1 AMI Findings: as above Complications: none
[2018-12-24] MEDS ORDERED: Albuterol HFA INHALER* 8 gm MDI INH PRN (20:36)
[2018-12-24] MEDS ORDERED: HYDROcodone/ACETAMIN 5-325 MG* 1 TAB PO PRN (20:40)
[2018-12-24] MEDS ORDERED: HYDROmorphone INJ1* 1 MG/ML SYRINGE IV SLOW PU PRN (20:42)
[2018-12-24] MEDS ORDERED: Ondansetron INJ* 2 MG/ML VIAL IV PRN (20:43)
[2018-12-24] MEDS ORDERED: Oxybutynin TAB* 5 MG PO SCH (21:00)
[2018-12-24] MEDS ORDERED: DiMENhydriNATE IV* 50 MG/ML VIAL ONE (21:03)
[2018-12-24] MEDS: fentaNYL* 50 MCG/ML 2 ML VIAL (100 MCG VIAL) IV PRN ×4 (21:27→21:52)
[2018-12-24] MEDS ORDERED: Scopolamine 1.5 mg* PATCH ONE (21:33)
--- NOTE | 2018-12-24 21:51 | OP ---
CC: Dr. Jack Corrales; Dr. Victoriano Mello * DATE OF OPERATION: 12/24/18 - ROOM #331 DATE OF : 47 SERVICE: General Surgery. ATTENDING SURGEON: Mary Dooley MD AIRLINE TICKET AGENT: RENITA Horton ANESTHESIOLOGIST: Dr. Bebo Powell. ANESTHESIA: General endotracheal anesthesia. PRE-OP DIAGNOSIS: Left breast cancer. POST-OP DIAGNOSIS: Left breast cancer. OPERATIVE PROCEDURE: Left breast mastectomy. SPECIMEN: Left breast. ESTIMATED BLOOD LOSS: 20 cc. DRAINS: One AMI drain. INDICATIONS FOR SURGERY: Ms. Neil is a very pleasant 73-year-old female with a history of newly diagnosed left breast invasive ductal adenocarcinoma. She had a history of right breast cancer from 2005, status post neoadjuvant therapy , mastectomy, and axillary lymph node dissection. She was evaluated by Oncology , and given her medical comorbidities, she was determined to be a poor candidate for chemotherapy postoperatively. She also did not want to have radiation or an axillary lymph node dissection. Therefore, given that she was refusing these things, the best surgical option for her would be a left breast mastectomy for which she did give informed consent. A sentinal lymph node biopsy was also determined to be unnecessary since the only adjuvant therapy she would agree to receive after surgery was hormonal therapy and the results of the SLNB would not affect this management. She understood the risks, benefits, and alternatives of the procedure and she wished to proceed. DESCRIPTION OF PROCEDURE: The patient was brought back to the operating room and placed on the operating table in supine position. Venodyne boots were placed on the bilateral lower extremities for DVT prophylaxis. Antibiotics were administered prior to incision. General endotracheal anesthesia was induced and the patient's left breast was prepped and draped in normal sterile fashion and her left arm was placed at a 90-degree angle with all pressure points padded. Prior to beginning the procedure, a time-out was performed verifying the patient's name, MR number, and the procedure to be performed. An elliptical incision was made surrounding the the nipple-areolar complex. The skin was divided down to subcutaneous tissue and then attention was turned towards developing the superior skin flap. Bahman clamps were used to elevate the dermis of the flap and the breast tissue was from the subcutaneous tissue plane of the superior flap and this dissection was carried superiorly towards the clavicle and medially towards the lateral aspect of the sternum and laterally towards the axilla and the latissimus. Once the clavicle was reached, the dissection was carried down to the pectoralis fascia. Next, attention was turned towards developing the inferior flap. Care was made as well to avoid making the flap too thin or too thick. The flap was developed in a similar fashion to the superior flap all the way inferiorly towards the inframammary fold, which had been marked out previously and medially towards the lateral aspect of the sternum and then laterally it met with the outline of the superior flap. Once the superomedial point of the flap and the inferior flap were developed and part of the lateral outline was developed, the breast tissue was taken off of the pectoralis major muscle to include the fascia. This was carried out towards laterally until the latissimus was identified and then once it was, the lateral aspect of the border of the breast was then divided at this point. The breast specimen was marked in the following fashion : Short suture was at the superior margin, the medium length suture was at the medial margin, and the long suture was at the lateral margin. Once this was done, the specimen was carried off on the table and attention was turned towards obtaining hemostasis in the breast cavity. Once hemostasis was obtained , copious amounts of irrigation with normal saline was used to irrigate out the cavity and local anesthesia consisting of 0.25% Marcaine and 1% lidocaine was placed into the breast cavity and then attention was turned towards closing the breast. Of note, a AMI drain was placed in the inferior flap and laid over the pectoralis major muscle and then secured to the skin using a 3-0 Prolene suture. Once this was done, the attention was turned towards the closure. There was some excess skin and subcutaneous tissue; therefore, the superior flap was trimmed to be able to align with the lower flap so that there would be no redundancy of tissue. The subdermal layer at the incision was closed using interrupted 3-0 Vicryl sutures. The dog ears were also removed at the medial end and the skin was closed using a running 4-0 Monocryl suture. Sterile dressing was then placed. The patient's anesthesia was reversed and she was taken to the PACU in stable condition. At the end of the case, all counts were correct and I was present through the entirety of the case. [id number]/[facility] #: [id number] [facility] HOSPITALJennifer
[2018-12-24] MEDS ORDERED: Heparin VIAL(*) 5000 UNITS/ML VIAL (FIVE THOUSAND) SUBCUT SCH (22:00)
[2018-12-24] MEDS ORDERED: Scopolamine 1.5 mg* PATCH TRANSDERM SCH (22:00)
[2018-12-24] MEDS: Lactated Ringers 1000 ML Bag* 1,000 ML IV SCH (23:11)
[2018-12-25] MEDS: Lactated Ringers 1000 ML Bag* 1,000 ML IV SCH (07:39)
[2018-12-25] MEDS ORDERED: Heparin VIAL(*) 5000 UNITS/ML VIAL (FIVE THOUSAND) SUBCUT SCH (08:00)
[2018-12-25] MEDS ORDERED: Pantoprazole TAB * 40 MG TAB PO SCH (09:00)
[2018-12-25] MEDS ORDERED: Lisinopril TAB* 10 MG PO SCH (09:00)
[2018-12-25] MEDS ORDERED: Oxybutynin TAB* 5 MG PO SCH ×2 (09:00→21:00)
[2018-12-25] MEDS ORDERED: Spironolactone TAB* 25 MG PO SCH (09:00)
--- NOTE | 2018-12-25 09:04 | PN ---
Progress Note - Progress Note Date of Service: 12/25/18 Note: S: POD #1. c/o some pain L upper chest wall, controlled. Did have some vomiting early this a.m., but feels better at present, looking forward to trying breakfast. Has not ambulated much as of yet. O: Vital Signs - 8 hr 12/25/18 12/25/18 12/25/18 02:35 02:51 04:38 Temperature 97.6 F 97.8 F Pulse Rate 61 55 Respiratory 22 22 20 Rate Blood Pressure 133/54 124/49 (mmHg) O2 Sat by Pulse 100 100 Oximetry 12/25/18 12/25/18 07:35 08:00 Temperature 97.5 F Pulse Rate 53 Respiratory 16 16 Rate Blood Pressure 126/54 (mmHg) O2 Sat by Pulse 99 Oximetry Intake and Output Last 24 Hours 12/23/18 12/24/18 12/25/18 12/26/18 06:59 06:59 06:59 06:59 Intake Total 1250 982 Output Total 265 50 Balance 985 932 Weight 164 lb Intake: IV Fluids 1200 982 LR 1200 982 Oral 50 Output: AMI #1 190 50 Emesis 75 Other: Estimated Void Medium # Voids 1 Gen: appears comfortable, NAD Heart: reg Lungs: clear ant Abd: soft, nontender L chest wall dsg intact (I did not take down); AMI drain serosang A: s/p L mastectomy, doing well pending po intake P: prob d/c home today pending exam by Dr. Dooley; instructions reviewed
[2018-12-25] MEDS ORDERED: traMADol TAB* 50 MG PO PRN (09:08)
[2018-12-25 11:47] VITALS: BP 110/36
[2018-12-25] MEDS ORDERED: Tiotropium Brom/Olodaterol MDI INH SCH (12:30)
--- NOTE | 2018-12-25 14:00 | DS ---
CC: Dr. Jack Corrales * DISCHARGE SUMMARY: DATE OF ADMISSION/OPERATION: 12/24/18 DATE OF DISCHARGE: 12/25/18 PRIMARY CARE PHYSICIAN: Dr. Jack Corrales. SERVICE: General Surgery. ATTENDING SURGEON: Dr. Mary Dooley. ADMISSION DIAGNOSIS: Left breast cancer. DISCHARGE DIAGNOSIS: Left breast cancer. OPERATION: Left breast mastectomy. HOSPITAL COURSE: Ms. Neil is a very pleasant 73-year-old female with a history of COPD, who presented electively for a left breast mastectomy for newly diagnosed left breast cancer. She previously had right breast cancer that was treated with a right breast mastectomy and axillary lymph node dissection as well as chemotherapy and hormonal therapy. The patient underwent surgery on 12/24/18 and tolerated it very well. On the day of discharge, on post-operative day 1, she was doing well. She was tolerating a regular diet. She was urinating on her own. Her pain was well controlled and on physical exam , her left breast mastectomy incision appeared to be clean, dry, and intact and the flaps appeared viable. Her AMI drain had serosanguineous output that was approximately 240 cc. She was given instructions about caring for her AMI drain and how to record daily outputs and will be discharged home with tramadol for pain control. She will have followup in the office with myself next Friday. PHYSICAL EXAM ON DISCHARGE: Vital Signs: Temperature is 97.5, pulse is 53, respiratory rate is 16, O2 sat is 99% on 2 L of oxygen, and blood pressure is 126/54. Left breast incision is clean, dry, and intact. There is some mild swelling and bruising in her axilla and a small indentation below her clavicle that is tender. AMI drain is serosanguineous. CONDITION: Good. DISPOSITION: To home. DISCHARGE MEDICATIONS: The patient should resume her home medications and a prescription for tramadol 50 mg p.o. q.6 hours p.r.n. was sent to her pharmacy. [id number]/[facility] #: [id number] LATOSHA
[2018-12-27] MEDS ORDERED: Scopolamine PATCH Remove* 1 NOTE MISC PATCH OFF SCH (22:00)
== END 2018-12-25 12:15 | disposition home or self-care (01) ==
LOC: OR 13:12 → SSU 20:24 → INTOOBSV 20:24 → UNDOADMIN 22:38 → SSU 22:38 → UNDODISIN 12-25 12:15
PROVIDERS: ADMIT Surgery; ATTEND Surgery
DX: C50.912 Malignant neoplasm of unspecified site of left female breast (principal); Z87.891 Personal history of nicotine dependence; Z79.899 Other long term (current) drug therapy; I10 Essential (primary) hypertension; G47.30 Sleep apnea, unspecified; R42 Dizziness and giddiness; J44.9 Chronic obstructive pulmonary disease, unspecified; R09.02 Hypoxemia
CPT/HCPCS: 88307; 96372; 96374; 96375; 96376; A9270-GY; G0378; J0690; J1100; J1170; J1240; J1644; J2250; J2405; J2704; J3010; J3490; J3535

== ENCOUNTER 2022-03-13 09:26 | Inpatient (IN) ==
[2022-03-13 10:52] LABS: Activated Partial Thrombo Time 30.8 seconds (26.0-38.0); INR 3.38 (0.89-1.11)
[2022-03-13 11:13] LABS: High Sens Troponin Baseline 7 pg/mL (<15)
[2022-03-13 11:28] LABS: ABS Eosinophils 0.1 10^3/ul (0-0.6); ABS Lymphocytes 1.6 10^3/ul (1.0-4.8); ABS Monocytes 0.6 10^3/ul (0-0.8); ABS Neutrophils 5.1 10^3/ul (1.5-7.7); Eosinophil % 0.8 %; Hematocrit 24 % (35-47); Hemoglobin 7.9 g/dL (12.0-16.0); Mean Corpuscular HGB Conc 33 g/dL (31-36); Mean Corpuscular Hemoglobin 33 pg (27-31); Mean Corpuscular Volume 101 fL (80-97); Mean Platelet Volume 7.8 fL (7.4-10.4); Platelet Count 215 10^3/uL (150-450); Red Blood Count 2.39 10^6 /uL (3.70-4.87); Red Cell Distribution Width 15 % (10-15); White Blood Count 7.4 10^3/uL (3.5-10.8)
[2022-03-13 11:49] LABS: ALT 10 U/L (7-52); Albumin 3.1 g/dL (3.2-5.2); Alkaline Phosphatase 47 U/L (35-149); Blood Urea Nitrogen 27 mg/dL (6-24); C Reactive Protein 4.72 mg/L (<8.01); CO2 Carbon Dioxide 30 mmol/L (22-32); Calcium 8.4 mg/dL (8.6-10.3); Chloride 101 mmol/L (101-111); Glucose 67 mg/dL (70-100); Sodium 138 mmol/L (135-145); Total Protein 6.1 g/dL (6.4-8.9); eGFR CKD-EPI 41.7 (>60)
[2022-03-13] MEDS ORDERED: Iodixanol (CONTRAST) 320 MG/ML 100 ML SDV IV ONE (11:57)
[2022-03-13 12:07] LABS: Anion Gap 7 mmol/L (2-11)
[2022-03-13 12:29] LABS: High Sensitivity Troponin 1 Hr 6 pg/mL (<15)
[2022-03-13] MEDS ORDERED: Furosemide 20 mg/2 ml IV VIAL IV ONE (14:22)
[2022-03-13 14:45] LABS: Potassium Redraw 3.7 mmol/L (3.5-5.0)
[2022-03-13] MEDS ORDERED: DOBUTamine 2000 MCG/ML IVPREMX 500 MG/250 ML BAG IV SCH ×3 (17:00→18:00)
[2022-03-13 17:26] LABS: Folate 10.37 ng/mL (5.90-24.80)
[2022-03-13 18:05] VITALS: BP 99/78
[2022-03-13 18:05] LABS: Urine Appearance Turbid; Urine Bilirubin Negative (Negative); Urine Blood 2+ (Negative); Urine Color Amber; Urine Glucose Negative (Negative); Urine Ketones Negative (Negative); Urine Nitrite Positive (Negative); Urine Protein 2+(100 mg/dL) (Negative); Urine Specific Gravity 1.035 (1.002-1.030); Urine Urobilinogen Positive (Negative)
[2022-03-13 18:10] LABS: Urine Bacteria 1+ (Absent); Urine Red Blood Cell 3+(>10/hpf) (Absent); Urine Squamous Epithelial Cell Present (Absent); Urine White Blood Cell 3+(>20/hpf) (Absent)
[2022-03-14] MEDS ORDERED: Tiotropium Brom/Olodaterol MDI INH SCH (09:00)
== END 2022-03-13 18:55 | disposition short-term general hospital (02) | DRG 307 ==
LOC: ED 09:26 → ICU 14:14 → EDHOLD 15:54 → ICU 16:58
PROVIDERS: ADMIT Internal Medicine Critical Care Medicine; ATTEND Internal Medicine Critical Care Medicine